=== PATIENT | female | born 1990 | race Caucasian/White ===

== ENCOUNTER 2020-04-04 23:45 | Emergency (ER) | payer OTHER ==
[2020-04-04 23:50] VITALS: BP 152/85; PULSE 98
[2020-04-05] MEDS ORDERED: Orphenadrine 60 MG/2 ML Inj IM ONE (00:09)
[2020-04-05] MEDS ORDERED: Ketorolac 60 MG/2 ML SDV IM ONE (00:09)
--- NOTE | 2020-04-05 00:32 | EDM.PDOC ---
ED HPI GENERAL MEDICAL PROBLEM - General Chief Complaint: Back Pain or Injury Stated Complaint: back pain post fall Time Seen by Provider: 04/05/20 00:06 Source of Information: Reports: Patient History Limitations: Reports: No Limitations - History of Present Illness INITIAL COMMENTS - FREE TEXT/NARRATIVE: Chelsey is a 29 year old female who presents to ER with complaints of lower right back pain. Was going to go out for a walk and slipped on the steps approximately 45 minutes ago. Was unable to get up from the ground per self and assisted by both parents. Pain with weight bearing and position changes. No radiation of pain down her legs. History of diskectomy in 2018 in the past but was having pain in her left leg at that time and had foot drop as a result. Has fully recovered from that. Onset: Today, Sudden Duration: Minutes:, Constant Location: Reports: Lower Extremity, Left Quality: Reports: Throbbing Severity: Severe Improves with: Reports: Rest Worsens with: Reports: Movement Associated Symptoms: Denies: Confusion, Chest Pain, Cough, Fever/Chills, Loss of Appetite, Nausea/Vomiting, Shortness of Breath, Weakness Right Lower Back Pain Score (Numeric/FACES): 7 - Related Data Allergies Allergy/AdvReac Type Severity Reaction Status Date / Time amoxicillin Allergy Rash Verified 04/04/20 23:50 clindamycin Allergy Hives Verified 04/04/20 23:50 Home Meds: Home Meds . [No Known Home Meds] 06/22/15 [History] Past Medical History - Past Health History Medical/Surgical History: Denies Medical/Surgical History Genitourinary History: Reports: UTI, Recurrent, Other (See Below) Other Genitourinary History: History of UTI with Kidney infection (05/05/2015) - Past Surgical History GI Surgical History: Reports: Cholecystectomy Female Surgical History: Reports: None Musculoskeletal Surgical History: Reports: Other (See Below) Other Musculoskeletal Surgeries/Procedures:: discectomy in 2018 Social & Family History - Tobacco Use Tobacco Use Status *Q: Never Tobacco User - Caffeine Use Caffeine Use: Reports: None - Recreational Drug Use Recreational Drug Use: No ED ROS GENERAL - Review of Systems Review Of Systems: See Below Constitutional: Reports: No Symptoms HEENT: Reports: No Symptoms Respiratory: Reports: No Symptoms Cardiovascular: Reports: No Symptoms Endocrine: Reports: No Symptoms GI/Abdominal: Reports: No Symptoms Musculoskeletal: Reports: Back Pain Skin: Reports: No Symptoms Neurological: Reports: No Symptoms ED EXAM,LOWER BACK PAIN/INJURY - Physical Exam Exam: See Below Exam Limited By: No Limitations General Appearance: Alert, WD/WN, Mild Distress Respiratory/Chest: No Respiratory Distress, Lungs Clear, Normal Breath Sounds Cardiovascular: Regular Rate, Rhythm GI/Abdominal: Normal Bowel Sounds, Soft, Non-Tender Neurological: Alert, Normal Mood/Affect, Normal Dorsiflexion, Normal Plantar Flexion, Normal Gait, Normal Reflexes, Oriented x 3, Other (patient has pain with palpation to right lateral musculature. pain with flexion and extension. Negative straight leg raise.) Skin Exam: Warm, Dry Course - Vital Signs Last Recorded V/S: Last Vital Signs Temp 97.2 F 04/04/20 23:46 Pulse 98 04/04/20 23:46 Resp 18 04/04/20 23:46 BP 152/85 H 04/04/20 23:46 Pulse Ox 98 04/04/20 23:46 - Orders/Labs/Meds Orders: Active Orders 24 hr Category Date Time Status Lumbar Spine 2 or 3V [CR] Stat Exams 04/05/20 00:09 Ordered Meds: Medications Discontinued Medications Generic Name Dose Route Start Last Admin Trade Name Freq PRN Reason Stop Dose Admin Ketorolac Tromethamine 60 mg 04/05/20 00:09 04/05/20 00:20 Toradol IM 04/05/20 00:10 60 mg ONETIME ONE Administration Orphenadrine Citrate 60 mg 04/05/20 00:09 04/05/20 00:23 Norflex IM 04/05/20 00:10 60 mg ONETIME ONE Administration - Re-Assessments/Exams Free Text/Narrative Re-Assessment/Exam: 04/05/20 00:34 Xrays negative for fracture Departure - Departure Time of Disposition: 00:34 Disposition: Home, Self-Care 01 Condition: Fair Clinical Impression: Acute low back pain - Discharge Information *PRESCRIPTION DRUG MONITORING PROGRAM REVIEWED*: No *COPY OF PRESCRIPTION DRUG MONITORING REPORT IN PATIENT CHETAN: No Instructions: Acute Back Pain, Adult Forms: ED Department Discharge Additional Instructions: 1. Rest 2. Ice to low back, may alternate with heat frequently over next 24 hours 3. Flexeril 10 mg every 8 hours as needed for muscle spasms 4. Toradol 10 mg every 6 hours as needed for pain/inflammation 5. Call PT in am if continued pain~ [phone] Sepsis Event Note (ED) - Evaluation Sepsis Screening Result: No Definite Risk - Focused Exam Vital Signs: Vital Signs Temp Pulse Resp BP Pulse Ox 04/04/20 23:46 97.2 F 98 18 152/85 H 98 - My Orders Last 24 Hours: My Active Orders 04/05/20 00:09 Lumbar Spine 2 or 3V [CR] Stat - Assessment/Plan Last 24 Hours: My Active Orders 04/05/20 00:09 Lumbar Spine 2 or 3V [CR] Stat
== END 2020-04-05 00:50 | disposition home or self-care (01) ==
LOC: CC.ED 23:45
DX: M54.5 Low back pain (principal); Z88.1 Allergy status to other antibiotic agents; Z88.0 Allergy status to penicillin
CPT/HCPCS: 72100; 96372; 99283-25; J1885; J2360